=== PATIENT | female | born 1995 | race African-American/Black ===

== ENCOUNTER 2022-04-15 20:02 | Inpatient (IN) ==
[2022-04-15] MEDS ORDERED: miSOPROStoL 200 MCG TABLET RECTAL PRN (20:17)
[2022-04-15] MEDS ORDERED: CARBOPROST TROMETHAMINE 250 MCG/ML AMP IM PRN (20:17)
[2022-04-15] MEDS ORDERED: METHYLERGONOVINE 0.2 MG/1 ML AMP IM PRN (20:17)
[2022-04-15] MEDS ORDERED: OXYTOCIN/LR 20 UNIT/1,000 ML BAG IV ONE (20:17)
[2022-04-15] MEDS ORDERED: TRANEXAMIC ACID 1,000 MG in SODIUM CHLORIDE 0.9% 100 ML IV PRN (20:17)
[2022-04-15] MEDS ORDERED: LACTATED RINGERS 1,000 ML IV SCH (20:30)
[2022-04-15 20:54] LABS: Basophils % 0.2 % (0.0-0.8); Eosinophils # 0.1 10*3/uL (0.0-0.87); Eosinophils % 1.3 % (0.00-10.9); Hematocrit 35.5 VOL% (35.7-47.0); Hemoglobin 11.5 GM/DL (12.0-16.0); Immature Granulocytes % 0.5 %; Immature Granulocytes Absolute 0.03 #; Lymphocytes # 2.1 10*3/uL (1.4-4.0); Lymphocytes % 33.9 % (21.3-54.2); Mean Corpuscular HGB Conc 32.4 GM/DL (32-36); Mean Corpuscular Volume 80.3 FL (87-102); Mean Platelet Volume 10.3 FL (9.6-12.0); Monocytes # 0.6 10*3/uL (0.11-0.8); Monocytes % 9.9 % (1.7-12.7); Neutrophils % 54.2 % (38.7-73.9); Platelet Count 300 T/CUMM (130-400); Red Blood Count 4.42 MC/CUMM (3.8-5.5); Red Cell Distribution Width 14.2 % (9.3-17.3); White Blood Count 6.2 T/CUMM (4-12)
[2022-04-15 21:14] LABS: Alanine Aminotransferase 14 U/L (13-56); Albumin 2.7 G/DL (3.4-5.0); Alkaline Phosphatase 151 U/L (45-117); Aspartate Amino Transferase 9 U/L (0-37); Bilirubin,Total < 0.39 MG/DL (0.20-1.00); Blood Urea Nitrogen 8 MG/DL (7-18); Calcium 8.9 MG/DL (8.5-10.1); Carbon Dioxide 23 MMOL/L (21-32); Chloride 109 MMOL/L (98-107); Glucose 105 MG/DL (74-106); Osmolality,Calculated 272.7 MOS/KG (273-304); Potassium 3.8 MMOL/L (3.5-5.1); Sodium 138 MMOL/L (136-145); Total Protein 7.1 G/DL (6.4-8.2)
[2022-04-15] MEDS ORDERED: ACETAMINOPHEN/CODEINE 300-30 MG TABLET PO ONE (21:47)
[2022-04-15 22:01] LABS: RPR Confirm - Less than 1 yr REACTIVE (Nonreactive)
[2022-04-16] MEDS ORDERED: MEPERIDINE 50 MG/1 ML VIAL IV PRN (02:34)
[2022-04-16] MEDS: ONDANSETRON 4 MG/2 ML VIAL IV PRN ×2 (02:46→09:32)
[2022-04-16] MEDS: MEPERIDINE 25 MG/1 ML VIAL IV PRN ×2 (02:56→09:35)
[2022-04-16] MEDS ORDERED: OXYTOCIN/LR 30 UNIT/1,000 ML BAG IV ONE (03:39)
[2022-04-16] MEDS ORDERED: ePHEDrine 50 MG/ML VIAL IV PRN (10:48)
[2022-04-16] MEDS ORDERED: hydrOXYzine HCL 25 MG/1 ML VIAL IM PRN (10:48)
[2022-04-16] MEDS ORDERED: diphenhydrAMINE 50 MG/1 ML VIAL IV PRN ×2 (10:48)
[2022-04-16] MEDS ORDERED: ONDANSETRON 4 MG/2 ML VIAL IV ONE (10:48)
[2022-04-16] MEDS ORDERED: PROMETHAZINE 25 MG/1 ML VIAL IM ONE (10:48)
[2022-04-16] MEDS ORDERED: NALOXONE 0.4 MG/ML VIAL IV PRN (10:48)
[2022-04-16] MEDS ORDERED: FAMOTIDINE 20 MG/2 ML VIAL IV ONE (10:49)
[2022-04-16] MEDS ORDERED: CITRIC ACID/SODIUM CITRATE 30 ML UDCUP PO ONE (10:49)
[2022-04-16] MEDS ORDERED: LACTATED RINGERS 1,000 ML IV ONE (10:49)
[2022-04-16] MEDS ORDERED: fentaNYL 2 MCG/ROPIV 0.2% EPID 100 ML EPIDURAL SCH (11:00)
[2022-04-16 13:29] LABS: Mucus,Urine Many /LPF (Occasional); RBC,Urine 2 /HPF (0-4); Squamous Epithelial Cell,Urine Occasional /HPF (0-10); Urine Appearance Clear (Clear); Urine Color Yellow (Yellow)
[2022-04-16 13:30] LABS: Bilirubin,Urine Negative (Negative); Blood, Urine Negative (Negative); Glucose,Urine (UA) Negative (Negative); Ketones,Urine Negative (Negative); Nitrite,Urine Negative (Negative); Protein,Urine Negative (Negative); Urine Specific Gravity > 1.030 (1.001-1.035); Urine Urobilinogen 0.2 eU/dL (<2.0); Urine pH 6.5 (4.5-8.0)
[2022-04-16] MEDS ORDERED: OXYTOCIN/LR 20 UNIT/1,000 ML BAG IV SCH (17:30)
[2022-04-16] MEDS ORDERED: BENZOCAINE 20%/MENTHOL 0.5% SPRAY 56 GM CAN TOP PRN (21:08)
[2022-04-16] MEDS ORDERED: ONDANSETRON 4 MG/2 ML VIAL IV PRN (21:08)
[2022-04-16] MEDS ORDERED: HYDROCORTISONE 2.5% RECTAL CREAM 30 GM TUBE TOP PRN (21:08)
[2022-04-16] MEDS ORDERED: DIPH/TET/ACEL PERT BOOSTER VACCINE 0.5 ML VIAL IM ONE (21:08)
[2022-04-16] MEDS ORDERED: oxyCODONE/ACETAMINOPHEN 5-325 MG TABLET PO PRN (21:08)
[2022-04-16] MEDS ORDERED: WITCH HAZEL PADS 100/JAR TOP PRN (21:08)
[2022-04-16] MEDS ORDERED: MEASLES/MUMPS/RUBELLA VACCINE 0.5 ML VIAL SUBCUT ONE (21:08)
[2022-04-16] MEDS ORDERED: BISACODYL 10 MG SUPP RECTAL PRN (21:08)
[2022-04-16] MEDS ORDERED: RHO(D) IMMUNE GLOBULIN 300 MCG SYRINGE IM ONE (21:08)
[2022-04-16] MEDS ORDERED: ACETAMINOPHEN 325 MG TABLET PO PRN (21:08)
[2022-04-16] MEDS ORDERED: OXYTOCIN/LR 20 UNIT/1,000 ML BAG IV ONE (21:08)
[2022-04-16] MEDS ORDERED: LANOLIN 50% CREAM 0.3 OZ TUBE TOP PRN (21:08)
[2022-04-16 21:17] LABS: Cord Venous Blood HCO3 21.7 MMOL/L; Cord Venous Blood PCO2 49.2 MMHG; Cord Venous Blood PO2 37.1
[2022-04-16] MEDS ORDERED: ACETAMINOPHEN/CODEINE 300-30 MG TABLET PO PRN (22:10)
[2022-04-16] MEDS: CLINDAMYCIN 300 MG CAPSULE PO SCH (23:31)
[2022-04-17] MEDS: ONDANSETRON 4 MG/2 ML VIAL IV PRN (00:26)
[2022-04-17 06:52] LABS: Basophils % 0.1 % (0.0-0.8); Eosinophils % 0.4 % (0.00-10.9); Hematocrit 33.8 VOL% (35.7-47.0); Hemoglobin 11.1 GM/DL (12.0-16.0); Immature Granulocytes % 0.5 %; Immature Granulocytes Absolute 0.06 #; Lymphocytes # 1.8 10*3/uL (1.4-4.0); Lymphocytes % 16.3 % (21.3-54.2); Mean Corpuscular HGB Conc 32.8 GM/DL (32-36); Mean Corpuscular Volume 79.9 FL (87-102); Mean Platelet Volume 10.4 FL (9.6-12.0); Monocytes # 1.2 10*3/uL (0.11-0.8); Monocytes % 10.8 % (1.7-12.7); Neutrophils % 71.9 % (38.7-73.9); Platelet Count 266 T/CUMM (130-400); Red Blood Count 4.23 MC/CUMM (3.8-5.5); Red Cell Distribution Width 14.3 % (9.3-17.3); White Blood Count 11.3 T/CUMM (4-12)
[2022-04-17] MEDS: CLINDAMYCIN 300 MG CAPSULE PO SCH ×4 (07:04→23:49)
[2022-04-17] MEDS: DOCUSATE SODIUM 100 MG CAPSULE PO SCH (09:05)
[2022-04-17] MEDS: IBUPROFEN 800 MG TABLET PO PRN ×2 (09:06→23:42)
[2022-04-17] MEDS: oxyCODONE/ACETAMINOPHEN 5-325 MG TABLET PO PRN (23:41)
[2022-04-18] MEDS: DOCUSATE SODIUM 100 MG CAPSULE PO SCH ×2 (01:26→08:56)
[2022-04-18] MEDS: CLINDAMYCIN 300 MG CAPSULE PO SCH (08:56)
[2022-04-18] MEDS: IBUPROFEN 800 MG TABLET PO PRN (08:58)
[2022-04-18] MEDS: oxyCODONE/ACETAMINOPHEN 5-325 MG TABLET PO PRN (08:58)
[2022-04-18 12:37] VITALS: BP 134/89
== END 2022-04-18 12:10 | disposition home or self-care (01) | DRG 807 ==
LOC: N.LDOUT 20:02 → N.LD 20:05 → N.OB 04-16 23:55
PROVIDERS: ADMIT Obstetrics & Gynecology; ATTEND Obstetrics & Gynecology